=== PATIENT | male | born 1990 | race Caucasian/White ===

== ENCOUNTER 2021-04-13 13:36 | Emergency (ER) | payer SELFPAY ==
[~2021-04-13] VITALS: Ht 167.6 cm; Wt 66.4 kg
[2021-04-13 14:40] VITALS: BP 135/84
--- NOTE | 2021-04-13 14:48 | PHYS DOC ---
General Adult HPI: HPI: Patient is a 30-year-old male who presents to the emergency department today for right wrist pain after he was sledding and fell off onto his wrist today. Patient rates pain 7 out of 10. It does not radiate. It is worse with movement. No treatment prior to arrival. Patient denies any decreased sensation to his extremity. Review of Systems: Review of Systems: Musculoskeletal: See HPI Integument: HPI Neurologic: See HPI Physical Exam: PE: Constitutional: Well developed, well nourished, no acute distress, non-toxic appearance. [] HENT: Normocephalic, atraumatic, bilateral external ears normal, oropharynx moist, no oral exudates, nose normal. [] Eyes: PERRL, EOMI, conjunctiva normal, no discharge. [] Neck: Normal range of motion, no tenderness, supple, no stridor. [] Cardiovascular:Heart rate regular rhythm, no murmur [] Lungs & Thorax: Bilateral breath sounds clear to auscultation [] Abdomen: Bowel sounds normal, soft, no tenderness, no masses, no pulsatile masses. [] Skin: Warm, dry, no erythema, no rash. [] Back: Normal range of motion Extremities: No tenderness, no cyanosis, no clubbing, ROM intact, no edema. Right wrist: Mild swelling noted, decreased range of motion due to pain, neuro intact, no obvious deformity, no wounds or ecchymosis, range of motion to elbow and fingers intact Neurologic: Alert and oriented X 3, normal motor function, normal sensory function, no focal deficits noted. [] Psychologic: Affect normal, judgement normal, mood normal. [] EKG: EKG: [] Radiology/Procedures: Radiology/Procedures: PROCEDURE: WRIST 3V RIGHT XR RT WRIST 3VIEWS History: Reason: injury / Spl. Instructions: / History: . Pain Technique: 3 views right wrist Comparison: None. Findings: Acute comminuted right distal radius fracture with dorsal angulation. There is adjacent soft tissue swelling. Acute mildly displaced ulnar styloid fracture. Impression: 1. Acute comminuted right distal radius fracture with dorsal angulation. 2. Acute mildly displaced ulnar styloid fracture. Electronically signed by: Rakesh Diaz DO (04/13/2021 3:49 PM) [facility] DICTATED AND SIGNED BY: RAKESH DIAZ DO DATE: 04/13/21 1547 CC: JOSE JEREZ APRN; PCP,SHLOMO ~MTH0 0 Heart Score: C/O Chest Pain: N/A Risk Factors: Risk Factors: DM, Current or recent (<one month) smoker, HTN, HLP, family history of CAD, obesity. Risk Scores: Score 0 - 3: 2.5% MACE over next 6 weeks - Discharge Home Score 4 - 6: 20.3% MACE over next 6 weeks - Admit for Clinical Observation Score 7 - 10: 72.7% MACE over next 6 weeks - Early Invasive Strategies Course & Med Decision Making: Course & Med Decision Making Pertinent Labs and Imaging studies reviewed. (See chart for details) [] Patient presents to the emergency department for right wrist pain after slipping and falling off of it and onto his wrist. An x-ray was performed that showed distal radial fracture. Discussed with supervising physician. Patients arm was placed in a splint. Neurovascularly intact pre and post placement. I discussed patient's case with the orthopedic doctor on-call at [facility] Dr. Figueroa and he agreed to see the patient outpatient, referral information given. Discharged home with pain medication. He was educated to use ice and elevation. He was educated on splint care. I discussed with patient all findings and diagnostic testing as well as the need to follow- up with PCP for further evaluation and treatment or return to the ER if any new or worsening symptoms. Strict return precautions were also discussed at length. Patient voiced understanding and agreement with the plan. Patient is hemodynamically stable at the time of disposition. Tracy Disclaimer: Tracy Disclaimer: This electronic medical record was generated, in whole or in part, using a voice recognition dictation system. Departure Departure: Impression: Primary Impression: Radial fracture Qualified Codes: S52.591A - Other fractures of lower end of right radius, initial encounter for closed fracture Disposition: HOME / SELF CARE / HOMELESS Condition: GOOD Referrals: PCP,SHLOMO (PCP) CHARLES FIGUEROA Jr. DO Patient Instructions: Radial Fracture Additional Instructions: You were seen in the ER today for a fracture or broken bone. He had a splint placed to help with pain and healing. You will need to follow-up with the orthopedic doctors in the orthopedic clinic as soon as possible. Please see attached information regarding follow-up physician. You should perform range of motion exercises to prevent stiffness of your joints. Splints help with the pain and can promote healing but immobility can cause chronic pain over time. Please refer to these attached instructions regarding range of motion exercises. Keep the splint clean and dry avoid getting it wet. If the splint gets wet you will need to have it replaced. You should use ice and elevation to help with the swelling and pain. For the first 24 hours apply ice 20 minutes on 20 minutes off 4 times per day. Ensure that ice is in a plastic bag as to not get the splint wet. You may take NSAID medications (ibuprofen, naproxen) to help with the pain. For severe pain you can take the medication that was prescribed for you. This medication is hydrocodone and Tylenol combination tablet. Do not take any additional Tylenol with this medication. This medication may cause drowsiness so do not take needs to be alert, driving a vehicle or with alcohol. Please return to the emergency department if you develop any of the following symptoms: Increasing pain that does not improve with treatments. New numbness or tingling Warmth, redness, skin discoloration, skin breakdown, drainage from under splint or near splinted area. Increasing inability to move your extremity or digits. Foul odor coming from splint Fevers or chills Nausea or vomiting Persistent lightheadedness We would be happy to see you for any other concerning symptoms regarding your splinted extremity. Scripts Hydrocodone Bit/Acetaminophen (HYDROCODONE-APAP 5-325 ) 1 Each Tablet 1 TAB PO PRN Q6HRS PRN for PAIN for 2 Days, #8 TAB 0 Refills Prov: JOSE JEREZ APRN 04/13/21 JOSE JEREZ APRN Apr 13, 2021 14:47
[2021-04-13] MEDS ORDERED: HYDROcodone/APAP 5/325MG 1 TAB TABLET PO ONE (15:15)
[2021-04-13] MEDS ORDERED: HYDR-2155 PO (15:48)
--- NOTE | 2021-04-13 15:51 | RAD ---
XR RT WRIST 3VIEWS History: Reason: injury / Spl. Instructions: / History: . Pain Technique: 3 views right wrist Comparison: None. Findings: Acute comminuted right distal radius fracture with dorsal angulation. There is adjacent soft tissue s welling. Acute mildly displaced ulnar styloid fracture. Impression: 1. Acute comminuted right distal radius fracture with dorsal angulation. 2. Acute mildly displaced ulnar styloid fracture. Electronically signed by: Rakesh Ash DO (04/13/2021 3:49 PM) [facility]
== END 2021-04-13 16:15 | disposition home or self-care (01) ==
LOC: ER 13:36
DX: S52.591A Other fractures of lower end of right radius, initial encounter for closed fracture (principal); W01.0XXA Fall on same level from slipping, tripping and stumbling without subsequent striking against object, initial encounter; Y93.89 Activity, other specified; Y92.89 Other specified places as the place of occurrence of the external cause; Y99.8 Other external cause status
CPT/HCPCS: 29105; 73110; 99283; 99284